=== PATIENT | female | born 1940 | race Caucasian/White ===

== ENCOUNTER 2020-08-19 11:33 | Observation (INO) | payer MEDICARE, SELFPAY ==
[2020-08-19] VITALS (15 sets, daily range): BP systolic 75–197; BP diastolic 55–145; PULSE 65–100; RESP 12–28; TEMP 36.4–36.7; O2SAT 76–100; BMI 37.3
--- NOTE | ~2020-08-19 | XR_ITS ---
EXAMINATION: XR chest 1V portable INDICATION: Chest congestion, shortness of breath TECHNIQUE: Portable AP chest at 1233 hours COMPARISON: 02/05/2016 FINDINGS: There is stable cardiomegaly. A mild diffuse interstitial pattern is present. There is no p leural effusion or pneumothorax. S-shaped thoracic curvature is noted. Calcified pulmonary nodules an d calcified mediastinal and bilateral hilar lymph nodes are consistent with old granulomatous disease . IMPRESSION: 1. Cardiomegaly with possible mild pulmonary edema. Reviewed, dictated and finalized at location A. UCTION PATTERN MAKER
--- NOTE | 2020-08-19 11:40 | ECG_ITS ---
Measurements Intervals [place] Rate: 97 P: 57 ND: 163 QRS: -8 QRSD: 87 T: 15 QT: 385 QTc: 491 Interpretive Statements SINUS RHYTHM FREQUENT VENTRICULAR PREMATURE COMPLEXES DELAYED PRECORDIAL R/S TRANSITION VOLTAGE CRITERIA FOR LVH BASELINE WANDER- V1-V6 ABNORMAL ECG Electronically Signed On 08-19-2020 17:53:18 HAIRSPRING CUTTER by Stan Castro D.O.
[2020-08-19 12:00] LABS: Basophils Absolute Auto 0.1 K/mm3 (0.0-0.1); Basophils Percent Auto 0.3 % (0.2-1.2); Eosinophils Absolute Auto 0.2 K/mm3 (0-0.3); Eosinophils Percent Auto 1.1 % (0-4.4); Hematocrit 32.8 % (37.0-47.0); Hemoglobin 10.2 g/dL (12.0-15.0); Immature Granulocyte Absolute 0.08 K/mm3 (0.00-0.031); Immature Granulocyte Percent A 0.5 % (0-0.5); Lymphocytes Absolute Auto 1.39 K/mm3 (0.9-3.2); Lymphocytes Percent Auto 9.5 % (18.3-44.2); Mean Corpuscular HGB Conc 31.1 g/dl (32-36); Mean Corpuscular Hemoglobin 23.4 pg (26-34); Mean Corpuscular Volume 75.4 fl (80-100); Mean Platelet Volume 10.5 fl (7.4-10.4); Monocytes Absolute Auto 0.8 K/mm3 (0.1-0.6); Monocytes Percent Auto 5.4 % (2.6-8.5); Neutrophils Absolute Auto 12.2 K/mm3 (1.3-6.7); Neutrophils Percent Auto 83.2 % (45.5-73.1); Platelet Count Result 319 k/mm3 (150-375); Red Blood Count 4.35 M/mm3 (4.2-5.4); White Blood Count 14.7 K/mm3 (4.5-10.0)
[2020-08-19 12:07] LABS: Prothrombin Time 14.2 Seconds (11.1-14.7)
[2020-08-19 12:08] LABS: Partial Thromboplastin Time 31.9 SECONDS (22.3-36.8)
[2020-08-19 12:11] LABS: Anion Gap 11 mmol/L (8-16); Blood Urea Nitrogen 24 mg/dL (7-17); Calcium 9.7 mg/dL (8.4-10.2); Carbon Dioxide 28 mmol/L (22-30); Chloride 98 mmol/L (98-107); Estimated CRCL calculation 33 ml/min; Estimated Glomerular Filt Rate 39; Glucose 197 mg/dL (65-105); Potassium 3.4 mmol/L (3.4-5.0); Sodium 137 mmol/L (137-145)
[2020-08-19 12:24] LABS: NT Pro B Type Natriuretic Pept 1190 PG/ML (5-100); Troponin I < 0.012 ng/mL (0.000-0.034)
--- NOTE | 2020-08-19 12:32 | ED.SOB ---
HPI - SOB/Dyspnea General Chief Complaint: Shortness of Breath/Dyspnea Stated Complaint: SOB Time Seen by Provider: 08/19/20 12:19 History of Present Illness HPI Narrative: 79 yo female w/ h/o CHF, DM, HTN c/o SOB. She reports that she has chronic SOB for quite some time. This has been worse over the past few weeks. It is present constantly, worse with exertion. She was just admitted to [facility] for newly diagnosed CHF. She was discharged from the hospital about 10 days ago with new prescriptions for lasix and albuterol. She was initially feeling better, but her symptoms have since returned. No CP, fever, chills, nausea, numbness. Related Data Home Medications Medication Instructions Recorded Confirmed Lantus Solostar U-100 Insulin 15 unit SUBCUT DAILY 08/19/20 08/19/20 Tradjenta 5 mg PO DAILY 08/19/20 08/19/20 albuterol sulfate 90 mcg INHALATION Q6H PRN 08/19/20 08/19/20 aspirin 81 mg PO DAILY 08/19/20 08/19/20 indapamide 2.5 mg PO DAILY 08/19/20 08/19/20 metoprolol tartrate 50 mg PO BID 08/19/20 08/19/20 valsartan 320 mg PO DAILY 08/19/20 08/19/20 Allergies Allergy/AdvReac Type Severity Reaction Status Date / Time adhesive tape Allergy Mild RASH Verified 08/19/20 12:23 benzocaine Allergy Unknown RASH Verified 08/19/20 12:23 LOCALANESTHETIC Allergy Unknown RASH Uncoded 08/19/20 12:23 Review of Systems Review of Systems: All systems reviewed & are unremarkable except as noted in HPI and below Constitutional: Constitutional: Denies chills and Denies fever(s) Cardiovascular: Cardiovascular: Denies chest pain Respiratory: Respiratory: Denies cough, Reports dyspnea and Denies wheezing Gastrointestinal: Gastrointestinal: Denies abdominal pain, Denies nausea and Denies vomiting Neurologic: Denies confusion, Denies dizziness and Reports weakness PMFSH Past Medical History Medical History (Updated 09/05/20 @ 17:[address] MD) Diastolic congestive heart failure Hypertension Insulin dependent diabetes mellitus Surgical History Surgical History (Updated 08/19/20 @ 22:14 by Natalie G. Gerling, PA-C) History of hammertoe correction History of laparoscopic cholecystectomy History of tubal ligation Family History Family History (Updated 08/19/20 @ 22:37 by Manolo Sabillon RN) Mother Diabetes mellitus Acute myocardial infarction Hypertension Sibling Heart disease Sibling Alzheimer's dementia Social History Social History (Updated 08/19/20 @ 22:15 by Natalie Shea PA-C) Social History: The patient lives in her own home in [place]. She has a small dog at home with her. 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 She is a lifelong nonsmoker and denies alcohol and illicit substance abuse. She designates her daughter Hien Aldana as her surrogate decision maker and she wishes to be a full code. Smoking status: Never smoker Substance use: never Gender identity (if verbalized by the patient): Female Sexual Orientation (if Verbalized by the Patient): Straight or Heterosexual Spiritual care concerns: No Exam Const: General: healthy appearing, no acute distress and alert Orientation/consciousness: patient oriented x3 HENMT: Head: normal to inspection Neck: Neck: normal visual inspection Chest: Chest palpation & inspection: normal inspection of the chest Resp: Effort & Inspection: normal respiratory effort Auscultation: clear to auscultation bilaterally, no rales, no rhonchi and no wheezes Cardio: Jugular venous distension: no JVD Rate: regular rate Rhythm: regular rhythm Heart sounds: no murmurs GI: Inspection: non-distended GI Palp: Yes Soft to palpation and No Tenderness to palpation present (GI) Skin: General skin exam: normal color Neuro: General: patient oriented x3, moves all extremities and no focal motor deficits Speech: normal speech Extrem: General: normal to inspection and no edema Psych: Appearance: well kina
[2020-08-19] MEDS: LABETALOL HCL INJ 100 MG/20 ML VIAL 20 MG IV PUSH (13:35)
[2020-08-19 18:04] LABS: Troponin I 0.014 ng/mL (0.000-0.034)
--- NOTE | 2020-08-19 19:09 | PC.NURSE ---
Pt arrived from ED at 18:58. Patient A&O X 4. On room air. No distress noted.
--- NOTE | 2020-08-19 20:30 | PM.IMHP ---
H&P: HPI History of Present Illness Date/Time: 08/19/20 20:30 Chief complaint: Chest heaviness and shortness of breath. Narrative: Lorraine Davis is a pleasant 79-year-old female with insulin-dependent diabetes, hypertension, and recent diagnosis of diastolic congestive heart failure who presented to the emergency department earlier this afternoon with complaints of chest heaviness and shortness of breath. For the last 3 weeks or so she reports the development of dyspnea on exertion and occasional wheezing. In fact she was admitted to [facility] on 08/01/2020 after developing acute/worsening shortness of breath and it was at that time she was diagnosed with diastolic congestive heart failure. In addition to diuresis she was treated with antibiotics for possible pneumonia and is nearly finished that prescription. She felt pretty good on discharge but unfortunately this morning, not long after waking at around 07:00, she developed a sudden heaviness sensation in the midsternal chest region associated with shortness of breath. She used her inhaler and that may have helped somewhat but her symptoms have persisted intermittently since that time and thus she came in for evaluation. On arrival to the emergency department her blood pressure was as high as 197/129 and she tells me it is not unusual for her to have high readings on her home blood pressure machine, but she always thought that they were erroneous. She received labetalol 20 mg IV push x1 which dropped her pressures significantly, down into the 70s systolic, and she reports feeling bad for short period of time but is feeling much better now that her blood pressures have rebounded. Since receiving the labetalol she has not experienced any further chest heaviness or shortness of breath. She chose to come to [facility] as she is establishing care with Dr. Lai. She does not have a maintenance job titles and has no known history of coronary disease. No lower extremity edema, calf pain, or tenderness. She has occasional chills but has not had fever or sweats. No significant cough, sinus congestion, rhinorrhea, otalgia, or odynophagia. She denies nausea and vomiting. No sick contacts or exposure to those positive for COVID-19. She has no history of asthma or COPD. Review of Systems Review of Systems: Narrative: Twelve systems were reviewed with pertinent positives and negatives as per HPI. No headache. She denies vertigo. No diarrhea or constipation. No dysuria. She believes her diabetes is well controlled but does not recall her last hemoglobin A1c. She only checks her glucose about twice a week and reports random readings usually around 120 or below. No blurry vision, polydipsia, or polyuria. Except as documented, all other systems were reviewed and are negative. [facility] Past Medical History Medical History (Updated 08/19/20 @ 22:17 by Natalie Shea PA-C) Diastolic congestive heart failure Hypertension Insulin dependent diabetes mellitus Surgical History Surgical History (Updated 08/19/20 @ 22:14 by Natalie Shea PA-C) History of hammertoe correction History of laparoscopic cholecystectomy History of tubal ligation Family History Family History (Updated 08/19/20 @ 22:14 by Natalie Shea PA-C) Mother Acute myocardial infarction Diabetes mellitus Sibling Heart disease Sibling Alzheimer's dementia Other Hypertension Social History Social History (Updated 08/19/20 @ 22:15 by Natalie Shea PA-C) Social History: The patient lives in her own home in [place]. She has a small dog at home with her. 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 She is a lifelong nonsmoker and denies alcohol and illicit substance abuse. She designates her daughter Hien Aldana as her surrogate decision maker and she wishes to be a full code. Smoking status: Never smoker Substance use: never Gender identity (if
[2020-08-19 20:58] LABS: Troponin I 0.015 ng/mL (0.000-0.034)
[2020-08-20] VITALS (8 sets, daily range): BP systolic 152–180; BP diastolic 58–91; PULSE 57–80; RESP 20–22; TEMP 36.6–37.2; O2SAT 98–99
[2020-08-20 00:30] LABS: Folic Acid 9.6 ng/mL (2.76->20); Vitamin B12 > 1000.0 pg/mL (239-931)
[2020-08-20 02:32] LABS: Iron 27 ug/dL (37-170)
[2020-08-20 02:42] LABS: Percent Iron Saturation 6 % (20-50)
[2020-08-20] MEDS: ASPIRIN 81 MG ENTERIC TABLET PO (09:10)
[2020-08-20] MEDS: VALSARTAN 160 MG TABLET 320 MG PO (09:10)
[2020-08-20] MEDS: METOPROLOL TARTRATE 50 MG TAB PO (09:10)
[2020-08-20] MEDS: INSULIN GLARGINE (*BKC) 100 UNITS/ML 15 UNITS SUB-Q (09:10)
[2020-08-20] MEDS: FUROSEMIDE INJ 40 MG/4 ML VIAL IV PUSH (09:10)
[2020-08-20] MEDS: INDAPAMIDE 2.5 MG TABLET PO (09:10)
[2020-08-20 09:39] LABS: Glucose Point of Care 125 (65-105)
[2020-08-20 12:40] LABS: Glucose Point of Care 163 (65-105)
--- NOTE | 2020-08-20 13:14 | PM.CNCAR ---
Assessment and Plan Additional Plan 79-year-old lady with a history of diastolic noncompliance and hypertension. She presents to the hospital with some SCOTT and is being seen in consultation. It is certainly possible that these are symptoms of an ischemic equivalent. She is not specifically reporting chest pain however. Given her age and risk factors ischemia workup is appropriate. Spoke to the patient about stress testing and angiography. At this point I would not subject her to an angiogram. I would recommend nuclear stress testing. We discussed at quite some length a Lexiscan nuclear stress test which the patient is not happy to have done that she had this done in the past a number of years ago and had a syncopal episode after receiving Lexiscan. She had a discussion with Dr. Mathews in our office back in March of 2016 and at that point she did not wish to have a noninvasive study or an angiogram. After a long discussion she became agreeable to stress testing. I was then reminded that both supervisor nuclear medicine at this hospital are out on illness and stress testing is therefore not available at [facility] at this time. Since there is no evidence of an acute coronary syndrome I will arrange for exercise nuclear stress testing to occur in the office and a short interval following discharge. After that I will arrange follow-up in the office with Dr. Mathews to discuss the findings. Thom Rubin MD [facility] History of Present Illness History of Present Illness Consult date/time: 08/20/20 13:14 Consult reason: shortness of breath Reason For Visit: Chest heaviness and shortness of breath. Narrative: This is a very pleasant 79-year-old lady am seeing this afternoon at the request of the hospitalist because of symptoms of dyspnea and mild chest discomfort with activities and was admitted from the emergency room last evening for further evaluation of this. She is a lady who is not known specifically to have coronary artery disease. She does have a history of left ventricular diastolic noncompliance that has been noted on echocardiograms for a while. She was seen by my partner, Dr. alvarez a number of years ago for this type of al evaluation. Workup for ischemic heart disease was recommended at that time but refused by the patient. She apparently had a syncopal episode in the past when she had a Lexiscan nuclear stress test done and was not desirous of having a coronary angiogram either. Follow-up in the office was recommended but not performed by the patient. At that time she was seeing a physician here locally she then transition her primary care to [facility]. She was recently hospitalized at [facility] for some dyspnea was told that she had diastolic noncompliance a yet again. An ischemic workup was not performed at that time in the way of any kind of stress testing that the patient can recall. She was admitted here to the hospital at [place] with the symptoms within a short period of her recent admission. She not reporting any orthopnea PND or accumulating lower extremity edema. Review of Systems Constitutional: Constitutional: Reports no additional constitutional complaints ENT: Reports system reviewed and no additional complaints, except as documented Cardiovascular: Cardiovascular: Reports no additional cardiovascular complaints Respiratory: Respiratory: Reports no additional respiratory complaints Gastrointestinal: Gastrointestinal: Reports no additional gastrointestinal complaints Musculoskeletal: Musculoskeletal: Reports arthralgias Neurologic: Reports system reviewed and no additional complaints, except as documented Endocrine: Endocrine: Reports no additional endocrine complaints Hematologic/Lymphatic: Hematologic/Lymphatic: Reports no additional hematologic/lymphatic complaints Allergic/Immunologic: Allergic/Immunologic: Reports no additional allergic/immunologic complaints PMFSH Past Medical Histo
--- NOTE | 2020-08-20 13:31 | PM.DS ---
DS: Admitting Diagnosis Admitting Diagnosis Admitting Diagnosis: Chest heaviness and shortness of breath. DS: Discharge Diagnosis Discharge Diagnosis (1) Chest heaviness: Code(s): R07.89 - Other chest pain Status: Acute (2) Diastolic congestive heart failure: Code(s): I50.30 - Unspecified diastolic (congestive) heart failure Status: Acute (3) Hypertension: Code(s): I10 - Essential (primary) hypertension Status: Acute (4) Insulin dependent diabetes mellitus: Status: Acute DS: Summary Hospital Course Reason for hospitalization: 79yo female with DM and dCHF here for SOB and CP. Please see H&P for details. Hospital Course: Patient presented the emergency room with complaints of chest shortness of blood pressure. On presentation her blood pressure was 148/112. She received labetalol 20 mg IV but blood pressure dropped to 75/62. Chest x-ray was read as cardiomegaly with possible mild pulmonary edema. Her white count was elevated 14,700. She had a microcytic anemia with hemoglobin 10.2. BUN 24 and Cr 1.3. She may be mildly dehydrated vs CKD. She is on indapamide and lasix at home. Lasix IV x 1 given here. Plan however is to stop Lasix and just keep her on the indapamide. Iron studies consistent with iron deficiency anemia. Never had colonoscopy. She was unaware of the iron deficiency. Iron supplements added at discharge. BP improved and able to resume her home meds. BP still mildly elevated so low dose Norvasc added at discharge. She was instructed to bring her BP cuff in to her PCP so the readings can be compared. Glucose was well controlled during her hospital course. She was seen by Cardiology. She remained chest pain free. Stress test recommended and harmann chose to have a treadmill nuc med stress. The nuc med department is not available to perform this test so plan is for patient to be discharged and have the stress test as outpatient. Patient is agreeable for discharge. Status at Discharge Cognitive/behavioral status at discharge: PATIENT IS STABLE FOR DISCHARGE Time Spent with Patient Time attestation: Total time spent providing and/or coordinating discharge services:38 minutes Time spent: Greater than 30 minutes Exam Narrative: Exam Narrative: AF 98.9 152/68 74 20 99% RA Gen - NARD sitting up at side of bed eating lunch Chest - CTA bilaterally, nml RR CV - RRR S1/S2; Tele showing NSR with PVCs Abd - Soft, NT/ND, Positive BS Ext - No pedal edema Neuro - Alert and oriented. Nonfocal exam. Psych - Nml mood and affect Skin - Warm and dry DS: Data Data Completed and Pending Labs on day of discharge: Labs from last 24 hours 08/20/20 08/20/20 08/19/20 12:05 09:07 22:52 POC Capillary Glucose 163 H 125 H Iron TIBC % Saturation Ferritin Troponin I Vitamin B12 > 1000.0 H Folate 9.6 TSH (Reflex) 08/19/20 08/19/20 08/19/20 22:52 20:29 17:28 POC Capillary Glucose Iron 27 L TIBC 437 % Saturation 6 L Ferritin 11.60 Troponin I 0.015 0.014 Vitamin B12 Folate TSH (Reflex) 1.550 Discharge Plan Discharge Attending physician on discharge: Danie Parikh Consulting providers: Thom Rubin Discharging Clinician: Danie Parikh Anticipated Discharge Date/Time: 08/20/20 13:55 Patient Disposition: Home, Self-Care Activity: as tolerated Diet: heart healthy Discharge Instructions: Please avoid large gathering, wear face coverings in public and practice social distance. Please check glucose before meals and before bed. Record and bring into your doctor for review. Check blood pressure 1 to 2 times a day. Record and bring into your doctor for review. Call your doctor if your blood pressure is greater than 180/100 as we discussed. Take precautions to avoid falls. Rise slowly from a lying or sitting position. Pause before standing or walking. Contact your d
== END 2020-08-20 15:13 | disposition home or self-care (01) ==
LOC: ANHED 13:24 → ANHIMU 17:48
PROVIDERS: Emergency Medicine; Physician Assistant; Admitting Provider Student in an Organized Health Care Education/Training Program; Emergency Provider Emergency Medicine; PCP Family Medicine; Visit Provider Internal Medicine
DX: R06.02 Shortness of breath (principal); I11.0 Hypertensive heart disease with heart failure; I50.30 Unspecified diastolic (congestive) heart failure; E11.9 Type 2 diabetes mellitus without complications; Z79.82 Long term (current) use of aspirin; Z79.4 Long term (current) use of insulin
CPT/HCPCS: 36415; 71045; 80048; 82607; 82728; 82746; 83540; 83550; 83880; 84443; 84484; 85025; 85610; 85730; 93005; 96374; 96375; 99285; A9270; G0378; J1815; J1940

== ENCOUNTER 2020-10-15 14:05 | Outpatient (CLI) | payer MEDICARE, SELFPAY ==
--- NOTE | ~2020-10-15 | XR_ITS ---
EXAMINATION: XR foot RT 2V DATE: 10/15/2020 14:34 INDICATION: Right foot pain. Gout. TECHNIQUE: Dorsoplantar and lateral views of the right foot were obtained. COMPARISON: None. FINDINGS: Widening of the second and third proximal interphalangeal joint spaces with osteotomies at the heads of the second and third proximal phalanges likely for prior hammertoe correction. Alignment is otherw ise normal. No fracture. Polyarticular osteoarthritis, mild to moderate at the tarsal metatarsal join ts and mild at multiple additional joints in the forefoot and hindfoot. There are several lucencies a long the distal articular surface of the navicula, proximal and distal articular surface of the mid c uneiform as well as along the proximal articular surface of the cuboid which could represent degenera tive subchondral cysts or erosions related to reported history of gout. Scattered small enthesophytes and enthesopathic ossification most prominent at the calcaneal insertion of the Achilles tendon and plantar aponeurosis. IMPRESSION: 1. Mild to moderate polyarticular osteoarthritis most prominent in the midfoot with air multiple smal l lucencies with thin sclerotic margins which could represent either degenerative subchondral cysts o r chronic erosions consistent with gout. Reviewed, dictated and finalized at location A. R DESIGNER IMPRESSION: 1. Mild to moderate polyarticular osteoarthritis most prominent in the midfoot with air multiple small lucencies with thin sclerotic margins which could repre sent either degenerative subchondral cysts or chronic erosions consistent with gout.
[2020-10-15 15:31] LABS: Uric Acid 8.7 mg/dL (2.5-7.5)
== END 2020-10-15 14:06 | disposition home or self-care (01) ==
PROVIDERS: PCP Family Medicine; Visit Provider Physician Assistant Medical
DX: M79.671 Pain in right foot (principal); Z87.39 Personal history of other diseases of the musculoskeletal system and connective tissue; M19.071 Primary osteoarthritis, right ankle and foot
CPT/HCPCS: 36415; 73620; 84550

== ENCOUNTER 2020-10-19 14:51 | Outpatient (CLI) | payer MEDICARE, SELFPAY ==
[2020-10-19 17:22] LABS: Anion Gap 8 mmol/L (8-16); Blood Urea Nitrogen 29 mg/dL (7-17); Calcium 9.3 mg/dL (8.4-10.2); Carbon Dioxide 26 mmol/L (22-30); Chloride 103 mmol/L (98-107); Estimated Glomerular Filt Rate 43; Glucose 225 mg/dL (65-105); Potassium 3.9 mmol/L (3.4-5.0); Sodium 137 mmol/L (137-145)
== END 2020-10-19 14:52 | disposition home or self-care (01) ==
PROVIDERS: PCP Family Medicine; Visit Provider Internal Medicine Cardiovascular Disease
DX: I10 Essential (primary) hypertension (principal)
CPT/HCPCS: 36415; 80048

== ENCOUNTER 2020-12-10 15:06 | Outpatient (CLI) | payer MEDICARE, SELFPAY ==
[2020-12-10 16:08] LABS: Hematocrit 41.9 % (37.0-47.0); Hemoglobin 14.1 g/dL (12.0-15.0); Mean Corpuscular HGB Conc 33.7 g/dl (32-36); Mean Corpuscular Hemoglobin 30.1 pg (26-34); Mean Corpuscular Volume 89.5 fl (80-100); Mean Platelet Volume 10.3 fl (7.4-10.4); Platelet Count Result 206 k/mm3 (150-375); Red Blood Count 4.68 M/mm3 (4.2-5.4); Red Cell Distribution Width 14.5 % (11.5-14.5); White Blood Count 13.4 K/mm3 (4.5-10.0)
[2020-12-10 16:25] LABS: Anion Gap 5 mmol/L (8-16); Blood Urea Nitrogen 23 mg/dL (7-17); Calcium 9.2 mg/dL (8.4-10.2); Carbon Dioxide 30 mmol/L (22-30); Chloride 101 mmol/L (98-107); Cholesterol 164 mg/dL (0-200); Estimated Glomerular Filt Rate 43; Glucose 163 mg/dL (65-105); HDL Direct 52 mg/dL; Potassium 3.7 mmol/L (3.4-5.0); Sodium 136 mmol/L (137-145); Triglycerides 170 mg/dL (<150); Uric Acid 7.2 mg/dL (2.5-7.5)
[2020-12-10 16:35] LABS: LDL Cholesterol Direct 69 mg/dL
[2020-12-10 16:55] LABS: Thyroid Stimulating Hormone 0.876 uIU/mL (0.465-4.680)
[2020-12-10 19:24] LABS: Iron 103 ug/dL (37-170); Percent Iron Saturation 33 % (20-50); Vitamin D 25 Hydroxy 26.9 ng/mL
== END 2020-12-10 15:07 | disposition home or self-care (01) ==
LOC: ANHLAB 15:07
PROVIDERS: PCP Family Medicine; Visit Provider Nurse Practitioner Family
DX: E78.2 Mixed hyperlipidemia (principal); N18.30 Chronic kidney disease, stage 3 unspecified; I10 Essential (primary) hypertension; E55.9 Vitamin D deficiency, unspecified; M10.9 Gout, unspecified; E61.1 Iron deficiency; D64.9 Anemia, unspecified; Z13.29 Encounter for screening for other suspected endocrine disorder; R74.8 Abnormal levels of other serum enzymes
CPT/HCPCS: 36415; 80048; 80061; 82306; 82607; 83540; 83550; 84443; 84550; 85027

== ENCOUNTER 2021-02-15 12:48 | Outpatient (CLI) | payer MEDICARE, SELFPAY ==
[2021-02-15 13:30] LABS: Hematocrit 40.8 % (37.0-47.0); Hemoglobin 13.8 g/dL (12.0-15.0); Mean Corpuscular HGB Conc 33.8 g/dl (32-36); Mean Corpuscular Hemoglobin 30.7 pg (26-34); Mean Corpuscular Volume 90.7 fl (80-100); Mean Platelet Volume 10.3 fl (7.4-10.4); Platelet Count Result 206 k/mm3 (150-375); Red Cell Distribution Width 13.9 % (11.5-14.5); White Blood Count 14.6 K/mm3 (4.5-10.0)
[2021-02-15 13:46] LABS: Potassium 3.7 mmol/L (3.4-5.0)
[2021-02-15 13:52] LABS: Anion Gap 5 mmol/L (8-16); Blood Urea Nitrogen 24 mg/dL (7-17); Calcium 9.9 mg/dL (8.4-10.2); Carbon Dioxide 29 mmol/L (22-30); Chloride 102 mmol/L (98-107); Estimated Glomerular Filt Rate 43; Glucose 124 mg/dL (65-105); Sodium 136 mmol/L (137-145)
[2021-02-15 14:21] LABS: Vitamin D 25 Hydroxy 39.8 ng/mL
== END 2021-02-15 12:49 | disposition home or self-care (01) ==
LOC: ANHLAB 12:50
PROVIDERS: PCP Family Medicine; Visit Provider Nurse Practitioner Family
DX: E55.9 Vitamin D deficiency, unspecified (principal); N18.30 Chronic kidney disease, stage 3 unspecified; D72.829 Elevated white blood cell count, unspecified
CPT/HCPCS: 36415; 80048; 82306; 85027

== ENCOUNTER 2021-04-03 09:33 | Outpatient (CLI) | payer MEDICARE, SELFPAY ==
--- NOTE | 2021-04-23 16:01 | WPDHOMESLEEP ---
Sleep Study - Home Unattended Date of Study: 04/03/21 Ordering Provider: Aminta Mathews MD Interpreting Provider: Trudy Marr MD Home Sleep Study Type: Apnea Link Air Height: 1.6 m Weight: 93.44 kg Body Mass Index: 36.5 Neck Circumference (inches): 13.25 [place]: 8 Reason for Sleep Study Hypersomnolence, fatigue, chronic diastolic congestive heart failure, Sleep History Lorraine Davis is an 80 year old female with chronic diastolic congestive heart failure, hypertension and excessive daytime sleepiness.m she has a difficult time falling asleep, she wakes up during during the night. She does not awaken from sleep feeling short of breath and she does not awaken with heartburn, belching or coughing. She does not mention whether or not she snores. She rarely has trouble sleeping with a cold. She does not wake up gasping for breath at night, does not have breathing problems at night observed by others and does not sweat excessively at night. She rarely falls asleep during the day, does not fall asleep while driving. She does not fall asleep while exerting physical effort. She does not have loss of muscle tone with strong emotion. She does not have daytime difficulties due to excessive sleepiness. There is no paralysis on waking or falling asleep. There are no vivid dreamlike scenes upon awakening or falling asleep. She is not great to go to sleep. She does not have nightmares and she does not remember her dreams. She rarely feels sad depressed or anxious. She does not have muscular tension. She does not notice parts of her body jerking. She does not kick at night. She rarely has crawling and aching feelings in her legs. She rarely has any kind of leg pain at night. She rarely has morning jaw pain. She does not grind her teeth during sleep. She rarely is bothered by pain during the day. She rarely is awakened by pain at night. She rarely wakes up feeling stiff in the morning with sore achy muscles or pain in the neck and spine. She has fatigue and depression. Normal bedtime is 10:30 p.m. and she wakes at 6:00 a.m.. She wakes 2-3 times at night to urinate. On the weekends she goes to bed at 11:00 p.m. and wakes at 8:00 a.m.. She does not generally take naps. A short nap may be refreshing. Most of the time she feels adequate on waking. She feels better in the afternoon compared to the morning. Habits: Never smoked tobacco. Caffeine: 4 cups daily. No alcohol or recreational drugs. [facility] Past Medical History Medical History BMI 37.0-37.9, adult Diastolic congestive heart failure Establishing care with new doctor, encounter for Gall stone Hypertension Insulin dependent diabetes mellitus Surgical History Surgical History History of hammertoe correction History of laparoscopic cholecystectomy History of tubal ligation Family History Family History Mother Diabetes mellitus Acute myocardial infarction Hypertension Heart disease Cholecystolithiasis Sibling Heart disease Alzheimer's dementia Sibling Alzheimer's dementia Father Heart disease Daughter No problems noted. Son Diabetes mellitus Morbid obesity Social History Social History Social History: The patient lives in her own home in [place]. She has a small dog at home with her. 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 She is a lifelong nonsmoker and denies alcohol and illicit substance abuse. She designates her daughter Hien Aldana as her surrogate decision maker and she wishes to be a full code. Smoking status: Never smoker Second hand tobacco smoke exposure: Yes Alcohol intake: never Substance use: never Substa
[2021-04-23 16:29] VITALS: BMI 36.5
== END 2021-04-05 10:09 | disposition home or self-care (01) ==
LOC: ANHCSM 09:42
PROVIDERS: PCP Family Medicine; Visit Provider Internal Medicine Cardiovascular Disease
DX: G47.9 Sleep disorder, unspecified (principal); G47.14 Hypersomnia due to medical condition; Z68.36 Body mass index [BMI] 36.0-36.9, adult
CPT/HCPCS: 95806

== ENCOUNTER → 2021-05-06 00:48 | Outpatient (CLI) | payer MEDICARE, SELFPAY ==
[2021-05-06 17:06] LABS: SARS-CoV-2 RNA PCR Negative
== END ==
PROVIDERS: PCP Family Medicine; Visit Provider Internal Medicine Critical Care Medicine
DX: Z01.812 Encounter for preprocedural laboratory examination (principal); Z20.822 Contact with and (suspected) exposure to COVID-19
CPT/HCPCS: C9803; U0003; U0005

== ENCOUNTER 2021-05-09 08:57 | Outpatient (CLI) | payer MEDICARE, SELFPAY ==
--- NOTE | 2021-06-05 13:40 | WPDSLEEPSTUD ---
Sleep Study Date of Study: 05/09/21 Ordering Provider: Aminta Mathews MD Interpreting Physician: Trudy Marr MD Sleep Study Type: CPAP Titration Height: 1.57 m Weight: 94.801 kg Body Mass Index: 38.2 Neck Circumference (inches): 13.75 [place]: 2 Reason for Sleep Study * home sleep test April 03, 2021 shows moderate mixed sleep apnea with an AHI of 24 desaturation 85%. now presents for CPAP titration Sleep History Lorraine Davis is an 80 year old female with chronic diastolic congestive heart failure, hypertension and excessive daytime sleepiness.m she has a difficult time falling asleep, she wakes up during during the night. She does not awaken from sleep feeling short of breath and she does not awaken with heartburn, belching or coughing. She does not mention whether or not she snores. She rarely has trouble sleeping with a cold. She does not wake up gasping for breath at night, does not have breathing problems at night observed by others and does not sweat excessively at night. She rarely falls asleep during the day, does not fall asleep while driving. She does not fall asleep while exerting physical effort. She does not have loss of muscle tone with strong emotion. She does not have daytime difficulties due to excessive sleepiness. There is no paralysis on waking or falling asleep. There are no vivid dreamlike scenes upon awakening or falling asleep. She is not great to go to sleep. She does not have nightmares and she does not remember her dreams. She rarely feels sad depressed or anxious. She does not have muscular tension. She does not notice parts of her body jerking. She does not kick at night. She rarely has crawling and aching feelings in her legs. She rarely has any kind of leg pain at night. She rarely has morning jaw pain. She does not grind her teeth during sleep. She rarely is bothered by pain during the day. She rarely is awakened by pain at night. She rarely wakes up feeling stiff in the morning with sore achy muscles or pain in the neck and spine. She has fatigue and depression. Normal bedtime is 10:30 p.m. and she wakes at 6:00 a.m.. She wakes 2-3 times at night to urinate. On the weekends she goes to bed at 11:00 p.m. and wakes at 8:00 a.m.. She does not generally take naps. A short nap may be refreshing. Most of the time she feels adequate on waking. She feels better in the afternoon compared to the morning. Habits: Never smoked tobacco. Caffeine: 4 cups daily. No alcohol or recreational drugs. [facility] Past Medical History Medical History BMI 37.0-37.9, adult Diastolic congestive heart failure Establishing care with new doctor, encounter for Gall stone Hypertension Insulin dependent diabetes mellitus Surgical History Surgical History History of hammertoe correction History of laparoscopic cholecystectomy History of tubal ligation Family History Family History Mother Diabetes mellitus Acute myocardial infarction Hypertension Heart disease Cholecystolithiasis Sibling Heart disease Alzheimer's dementia Sibling Alzheimer's dementia Father Heart disease Daughter No problems noted. Son Diabetes mellitus Morbid obesity Social History Social History Social History: The patient lives in her own home in [place]. She has a small dog at home with her. 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 She is a lifelong nonsmoker and denies alcohol and illicit substance abuse. She designates her daughter Hien Aldana as her surrogate decision maker and she wishes to be a full code. Smoking status: Never smoker Second hand tobacco smoke exposure: Yes Alcohol int
[2021-06-05 13:43] VITALS: BMI 38.2
== END 2021-05-10 06:42 | disposition home or self-care (01) ==
LOC: ANHCSM 08:59
PROVIDERS: PCP Family Medicine; Visit Provider Internal Medicine Cardiovascular Disease
DX: G47.39 Other sleep apnea (principal); Z68.38 Body mass index [BMI] 38.0-38.9, adult
CPT/HCPCS: 95811

== ENCOUNTER 2021-11-08 22:08 | Inpatient (IN) | payer MEDICARE, SELFPAY ==
--- NOTE | ~2021-11-08 | XR_ITS ---
EXAMINATION: XR chest 1V portable EXAM DATE: 11/08/2021 23:03 INDICATION: covid and SOB . TECHNIQUE: Portable AP frontal chest x-ray was obtained. Comparison is made to prior examination from . FINDINGS: Ill-defined bilateral airspace disease, mild edema or pneumonia. No pneumothorax or pleural effusion. Mild cardiomegaly. There are bony degenerative changes. Mild to moderate lower thoracic le voscoliosis. IMPRESSION: Mild bilateral pneumonia or edema. Reviewed, dictated and finalized at location [address] [facility]
--- NOTE | ~2021-11-08 | XR_ITS ---
XR chest 1V portable 11/10/2021 11:03 Indication: Shortness of breath and cough Procedure: AP portable chest Comparison: 11/08/2021 Findings: There is developing patchy bilateral airspace disease. Heart size mildly enlarged. No signi ficant effusion, edema or pneumothorax. Impression: 1: Developing patchy bilateral airspace disease, compatible with pneumonia. Reviewed, dictated and finalized at location A. PLE CUTTER Impression: 1: Developing patchy bilateral airspace disease, compatible with pneumonia.
--- NOTE | ~2021-11-08 | CT_ITS ---
EXAMINATION: CTA chest PE protocol DATE: 11/09/2021 08:29 LOOM OPERATOR APPRENTICE INDICATION: Covid Infection. Elevated d-dimer. Weakness. TECHNIQUE: Computed tomographic angiography (CTA) of the chest was performed with 100 mL Omnipaque-35 0 intravenous contrast. The dose-length product was 591.23 mGy-cm. Maximum intensity projection 3D-re constructions of the aorta and other arteries were constructed by the technologist on a separate work station. Automated exposure control and iterative reconstruction technique were employed. COMPARISON: None. FINDINGS: Study is technically adequate without evidence for pulmonary embolism. No significant thora cic lymphadenopathy. There is atherosclerosis of the aorta without evidence for aneurysm. Trace pleur al effusions. Small hiatal hernia. Patchy groundglass opacities bilaterally, consistent with pneumoni a. There is evidence for chronic granulomatous disease. IMPRESSION: 1. Patchy bilateral groundglass opacities, consistent with pneumonia. 2: No evidence for pulmonary embolism. 3: Small pleural effusions. Reviewed, dictated and finalized at location A. OPERATOR APPRENTICE
[2021-11-08 22:14] VITALS: BP 148/88; PULSE 81; RESP 14; TEMP 36.8; O2SAT 96
--- NOTE | 2021-11-08 22:32 | ECG_ITS ---
Measurements Intervals [place] Rate: 125 P: NV: 0 QRS: -13 QRSD: 86 T: 15 QT: 341 QTc: 493 Interpretive Statements ATRIAL FIBRILLATION WITH RAPID VENTRICULAR RESPONSE VENTRICULAR PREMATURE COMPLEXES DELAYED PRECORDIAL R/S TRANSITION LEFT VENTRICULAR HYPERTROPHY WITH ST-T CHANGE INFERIOR INFARCT, AGE INDETERMINATE BASELINE ARTIFACT- V6 ABNORMAL ECG Electronically Signed On 11-09-2021 8:40:00 SHOE TRIMMER by Stan Castro D.O.
--- NOTE | 2021-11-08 22:37 | ED.GENADULT ---
HPI - General Adult General Chief complaint: Weakness Stated complaint: shortness of breath, covid + Time Seen by Provider: 11/08/21 22:25 Source: patient and RN notes reviewed Limitations: no limitations History of Present Illness HPI narrative: 80-year-old female with history of congestive heart failure and chronic kidney disease presents to the emergency department with 1 week of fatigue and decreased p.o. intake. Patient did test positive for Covid today. Patient states over the last week she has had decreased p.o. intake. Patient does report some associated shortness of breath. Patient denies any chest pain. Patient denies any actual vomiting or abdominal pain. Patient denies any constipation or diarrhea. Patient arrived and A. fib with RVR. Patient denies any prior history of atrial fibrillation with rapid ventricular response. Patient does report history of congestive heart failure Patient is not vaccinated. Related Data Home Medications Medication Instructions Recorded Confirmed aspirin 81 mg tablet 81 mg PO DAILY 09/06/20 07/31/21 Allergies Allergy/AdvReac Type Severity Reaction Status Date / Time adhesive tape Allergy Mild RASH Verified 07/30/21 15:05 benzocaine Allergy Unknown RASH Verified 07/30/21 15:05 LOCALANESTHETIC Allergy Unknown RASH Uncoded 07/30/21 15:05 Review of Systems Review of Systems: CONSTITUTIONAL: Subjective fevers chills EYES: Denies visual changes, redness, or discharge. ENT: Denies rhinorrhea, congestion, sore throat, or otalgia. CARDIOVASCULAR: Denies chest pain, palpitations, or edema. RESPIRATORY: Does report some shortness of breath GASTROINTESTINAL: Denies abdominal pain, nausea, vomiting, or diarrhea. GENITOURINARY: Denies dysuria or hematuria. SKIN: Denies rash or itching. MUSCULOSKELETAL: Denies back pain, joint pain, or myalgia. NEUROLOGIC: Denies headache, numbness, or weakness. [facility] Past Medical History Medical History BMI 37.0-37.9, adult BMI 38.0-38.9,adult Diastolic congestive heart failure Establishing care with new doctor, encounter for Gall stone Hypertension Insulin dependent diabetes mellitus Surgical History Surgical History History of hammertoe correction History of laparoscopic cholecystectomy History of tubal ligation Family History Family History Mother Diabetes mellitus Acute myocardial infarction Hypertension Heart disease Cholecystolithiasis Sibling Heart disease Alzheimer's dementia Sibling Alzheimer's dementia Father Heart disease Daughter No problems noted. Son Diabetes mellitus Morbid obesity Social History Social History Social History: The patient lives in her own home in [place]. She has a small dog at home with her. 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 She is a lifelong nonsmoker and denies alcohol and illicit substance abuse. She designates her daughter Hien Aldana as her surrogate decision maker and she wishes to be a full code. 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 HEAD: normocephalic, atraumatic. EYES: PERRLA/EOMI, conjunctivae clear. NOSE: Normal no drainage NECK: Supple. No adenopathy, no masses. RESPIRATORY: Airway patent, respirations nonlabored. Clear to auscul
[2021-11-08] MEDS: SODIUM CHLORIDE 0.9% IV 1,000 ML 250 ML IV CONT (23:24)
[2021-11-08 23:42] VITALS: PULSE 111
[2021-11-08] MEDS: METOPROLOL TARTRATE 50 MG TAB PO (23:42)
[2021-11-08 23:44] VITALS: BP 164/95; PULSE 120; RESP 26; O2SAT 97
[2021-11-08 23:46] LABS: Basophils Percent Auto 0.2 % (0.2-1.2); Hematocrit 42.2 % (37.0-47.0); Hemoglobin 14.4 g/dL (12.0-15.0); Immature Granulocyte Absolute 0.09 K/mm3 (0.00-0.031); Lymphocytes Absolute Auto 0.65 K/mm3 (0.9-3.2); Lymphocytes Percent Auto 7.5 % (18.3-44.2); Mean Corpuscular HGB Conc 34.1 g/dl (32-36); Mean Corpuscular Hemoglobin 30.1 pg (26-34); Mean Corpuscular Volume 88.3 fl (80-100); Mean Platelet Volume 10.5 fl (7.4-10.4); Monocytes Percent Auto 11.9 % (2.6-8.5); Neutrophils Absolute Auto 6.9 K/mm3 (1.3-6.7); Neutrophils Percent Auto 79.4 % (45.5-73.1); Platelet Count Result 169 k/mm3 (150-375); Red Blood Count 4.78 M/mm3 (4.2-5.4); Red Cell Distribution Width 13.3 % (11.5-14.5); White Blood Count 8.7 K/mm3 (4.5-10.0)
[2021-11-09] VITALS (24 sets, daily range): BP systolic 103–173; BP diastolic 56–112; PULSE 73–127; RESP 11–28; TEMP 36.3–37; O2SAT 95–99; BMI 35.7
[2021-11-09 00:03] LABS: D Dimer 1.59 ug/mL (<0.48)
[2021-11-09 00:04] LABS: Lactic Acid Reflex 1.2 mmol/L (0.7-2.1)
[2021-11-09] MEDS: dilTIAZem HCl INJ 25 MG/5 ML VIAL 10 MG IV PUSH (00:08)
[2021-11-09] MEDS: dilTIAZem 100 MG/100 ML 100 MG/100 ML BAG IV CONT ×2 (00:11→21:29)
[2021-11-09 00:37] LABS: Alanine Aminotransferase 20 U/L (4-35); Albumin Level 3.9 g/dL (3.5-5.1); Alkaline Phosphatase 77 U/L (38-126); Anion Gap 8 mmol/L (8-16); Aspartate Amino Transferase 36 U/L (14-36); Bilirubin,Total 1.4 mg/dL (0.2-1.3); Blood Urea Nitrogen 25 mg/dL (7-17); Calcium 8.7 mg/dL (8.4-10.2); Carbon Dioxide 28 mmol/L (22-30); Chloride 89 mmol/L (98-107); Estimated CRCL calculation 38 ml/min; Estimated Glomerular Filt Rate 48; Glucose 174 mg/dL (65-110); Lactate Dehydrogenase 509 U/L (313-618); Potassium 2.6 mmol/L (3.4-5.0); Sodium 125 mmol/L (137-145)
[2021-11-09] MEDS: POTASSIUM CHLORIDE 20 MEQ PACKET (FOR LIQUID) 40 MEQ PO (01:11)
[2021-11-09 01:33] LABS: Add Urine Microscopic? YES; Appearance Urine Clear (Clear); Bacteria Urine Trace /hpf; Bilirubin Urine Negative (Negative); Blood Urine 1+ (Negative); Color Urine Amber (Yellow); Glucose Urine UA Negative (Negative); Ketones Urine Negative (Negative); Leukocyte Esterase Ur 3+ LEU/UL (Negative); Mucus Urine Few /lpf; Nitrate Urine Negative (Negative); Protein Urine 3+ mg/dL (Negative); Squamous Epithelial Cell Urine Many /hpf (Few); WBC Urine 21-30 /hpf
[2021-11-09 01:57] LABS: Specific Grav Ur 1.045 (1.001-1.035)
[2021-11-09] MEDS: POTASSIUM CHLORIDE INJ 40 MEQ in SODIUM CHLORIDE 0.9% IV 500 ML 130 MEQ IVPB (03:36)
--- NOTE | 2021-11-09 06:17 | PC.NURSE ---
Pt ambulates with assistance of walker, RN provided hospital-owned walker to assist pt in to getting to bathroom, pt appears SOB and weak after short walks but states that she does well by herself at home; pt was re-dressed into gown, linens changed and warm blanket provided due to pt spilling water on self and stretcher. Pt continues on diltizem at original rate, hr has improved and there has been no need to increase dose. Pt has no complaints at this time.
--- NOTE | 2021-11-09 13:39 | PM.IMHP ---
H&P: HPI History of Present Illness Date/Time: 11/09/21 13:39 Chief Complaint: AFib with RVR Narrative: 80-year-old female with history of congestive heart failure and chronic kidney disease stage III presents to the emergency department with 1 week history of fatigue and decreased p.o. intake. She was also having some cough and hence went and did a home COVID test which came back positive on . She reports some associated shortness of breath. She denies any palpitations. Due to ongoing fatigue and tiredness she came to the ED for evaluation. She was noted to be in atrial fibrillation with rapid ventricular rate. She denies any prior history of atrial fibrillation. She denies any diarrhea or nausea vomiting or abdominal pain. She was given her metoprolol however the rate was not controlled and hence she was started on Cardizem drip in the ER. She currently is on Cardizem drip and remains in atrial fibrillation. She is admitted under observation status for further management. Patient is not vaccinated with COVID vaccine Review of Systems Review of Systems: CONSTITUTIONAL: Reports some Subjective fevers chills EYES: Denies visual changes, redness, or discharge. ENT: Denies rhinorrhea, congestion, sore throat, or otalgia. CARDIOVASCULAR: Denies chest pain, palpitations, or edema. RESPIRATORY: Does report some shortness of breath reports some dry cough GASTROINTESTINAL: Denies abdominal pain, nausea, vomiting, or diarrhea. GENITOURINARY: Denies dysuria or hematuria. SKIN: Denies rash or itching. MUSCULOSKELETAL: Denies back pain, joint pain, or myalgia. NEUROLOGIC: Denies headache, numbness, or weakness. [facility] Past Medical History Medical History BMI 37.0-37.9, adult BMI 38.0-38.9,adult Diastolic congestive heart failure Establishing care with new doctor, encounter for Gall stone Hypertension Insulin dependent diabetes mellitus Surgical History Surgical History History of hammertoe correction History of laparoscopic cholecystectomy History of tubal ligation Family History Family History Mother Diabetes mellitus Acute myocardial infarction Hypertension Heart disease Cholecystolithiasis Sibling Heart disease Alzheimer's dementia Sibling Alzheimer's dementia Father Heart disease Daughter No problems noted. Son Diabetes mellitus Morbid obesity Social History Social History Social History: The patient lives in her own home in [place]. She has a small dog at home with her. 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 She is a lifelong nonsmoker and denies alcohol and illicit substance abuse. She designates her daughter Hien Aldana as her surrogate decision maker and she wishes to be a full code. 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 Gender identity (if verbalized by the patient): Female Sexual Orientation (if Verbalized by the Patient): Straight or Heterosexual Spiritual care concerns: No Meds Home Medications and Allergies Home Medications Medication Instructions Recorded Confirmed Type aspirin 81 mg tablet 81 mg PO DAILY 09/06/20 11/09/21 History insulin glargine 100 unit/mL (3 10 unit SUBCUT DAILY #15 ml 04/04/21 11/09/21 Rx mL) subcutaneous pen blood sugar diagnostic #100 ea 04/10/21 11/09/21 Rx pen needle, diabetic 33 gauge x #100 ea 04/10/21 11/09/21 Rx 5/16 indapamide 2.5 mg tablet 5 mg PO DAILY #180 tablet 05/24/21 11/09/21 Rx albuterol sulfate 90 mcg/actuation 90 mcg INHALATION
--- NOTE | 2021-11-09 14:11 | PC.NURSE ---
This patient, Lorraine Davis, was admitted to IMU Room 210-01. Patient/family oriented to hospital policies and general routines including ID bracelet, bed and alarms, visiting hours, pain management, procedures, bathroom and other care routines, personal items, smoking policy, room service/diet, and visiting hours. Information on how to activate the Rapid Response Team has been discussed. Patient/Family are encouraged to report perceived risks to care and to ask questions if they do not understand what they are told or what they should do. [id number]
[2021-11-09] MEDS: ENOXAPARIN 100 MG/ML SYRINGE 90 MG SUB-Q (16:45)
[2021-11-09] MEDS: amLODIPine BESYLATE 5 MG TABLET PO (16:46)
[2021-11-09] MEDS: allopurinoL 100 MG TABLET PO (16:46)
[2021-11-09] MEDS: VALSARTAN 160 MG TABLET 320 MG PO (16:47)
[2021-11-09] MEDS: INDAPAMIDE 2.5 MG TABLET 5 MG PO (16:47)
[2021-11-09] MEDS: ASPIRIN 81 MG ENTERIC TABLET PO (16:47)
[2021-11-09] MEDS: FERROUS SULFATE 324 MG TABLET PO (16:47)
[2021-11-09 16:51] LABS: Anion Gap 7 mmol/L (8-16); Blood Urea Nitrogen 25 mg/dL (7-17); Calcium 8.6 mg/dL (8.4-10.2); Carbon Dioxide 27 mmol/L (22-30); Chloride 94 mmol/L (98-107); Estimated CRCL calculation 35 ml/min; Estimated Glomerular Filt Rate 43; Glucose 153 mg/dL (65-110); Magnesium 1.7 mg/dL (1.6-2.3); Potassium 3.2 mmol/L (3.4-5.0); Sodium 128 mmol/L (137-145)
--- NOTE | 2021-11-09 17:07 | PCRCNOTE ---
Pt declines use of hospital CPap. She states she cannot tolerated the mask at home either.
[2021-11-09 17:14] LABS: Glucose Point of Care 165 mg/dl (65-105)
[2021-11-09 17:54] LABS: Thyroid Stimulating Hormone Reflex 0.422 uIU/mL (0.465-4.68)
[2021-11-09 18:39] LABS: Free T4 Free Thyroxine Reflex 1.85 ng/dL (0.78-2.19)
[2021-11-09 19:23] LABS: Total Triiodothyronine (T3) 0.92 NG/ML (0.97-1.69)
[2021-11-09 20:36] LABS: Glucose Point of Care 144 mg/dl (65-105)
[2021-11-09] MEDS: METOPROLOL TARTRATE 50 MG TAB PO (21:28)
[2021-11-09] MEDS: MAGNESIUM SULF 2 GM/WATER 50ML 2 GM/50 ML BAG IVPB (23:37)
[2021-11-09] MEDS: POTASSIUM CHLORIDE 20 MEQ TABLET 40 MEQ PO (23:37)
[2021-11-10] VITALS (16 sets, daily range): BP systolic 111–150; BP diastolic 56–102; PULSE 64–110; RESP 18–26; TEMP 36.6–37.6; O2SAT 93–98
[2021-11-10 04:57] LABS: Basophils Percent Auto 0.2 % (0.2-1.2); Eosinophils Percent Auto 0.1 % (0-4.4); Hematocrit 39.2 % (37.0-47.0); Hemoglobin 13.5 g/dL (12.0-15.0); Immature Granulocyte Absolute 0.07 K/mm3 (0.00-0.031); Immature Granulocyte Percent A 0.8 % (0-0.5); Lymphocytes Absolute Auto 0.74 K/mm3 (0.9-3.2); Lymphocytes Percent Auto 8.7 % (18.3-44.2); Mean Corpuscular HGB Conc 34.4 g/dl (32-36); Mean Corpuscular Hemoglobin 30.1 pg (26-34); Mean Corpuscular Volume 87.3 fl (80-100); Mean Platelet Volume 10.5 fl (7.4-10.4); Monocytes Absolute Auto 0.8 K/mm3 (0.1-0.6); Monocytes Percent Auto 9.1 % (2.6-8.5); Neutrophils Absolute Auto 6.9 K/mm3 (1.3-6.7); Neutrophils Percent Auto 81.1 % (45.5-73.1); Platelet Count Result 162 k/mm3 (150-375); Red Blood Count 4.49 M/mm3 (4.2-5.4); Red Cell Distribution Width 13.4 % (11.5-14.5); White Blood Count 8.5 K/mm3 (4.5-10.0)
[2021-11-10] MEDS: ENOXAPARIN 100 MG/ML SYRINGE 90 MG SUB-Q ×2 (06:04→17:37)
[2021-11-10 07:28] LABS: Alanine Aminotransferase 20 U/L (4-35); Albumin Level 3.6 g/dL (3.5-5.1); Alkaline Phosphatase 73 U/L (38-126); Anion Gap 6 mmol/L (8-16); Aspartate Amino Transferase 41 U/L (14-36); Blood Urea Nitrogen 21 mg/dL (7-17); Calcium 8.4 mg/dL (8.4-10.2); Carbon Dioxide 30 mmol/L (22-30); Chloride 94 mmol/L (98-107); Estimated CRCL calculation 35 ml/min; Estimated Glomerular Filt Rate 43; Glucose 110 mg/dL (65-110); Magnesium 2.3 mg/dL (1.6-2.3); Sodium 130 mmol/L (137-145)
[2021-11-10] MEDS: FERROUS SULFATE 324 MG TABLET PO (08:57)
[2021-11-10] MEDS: INDAPAMIDE 2.5 MG TABLET 5 MG PO (08:58)
[2021-11-10] MEDS: POTASSIUM CHLORIDE 20 MEQ PACKET (FOR LIQUID) 40 MEQ PO (08:58)
[2021-11-10] MEDS: ASPIRIN 81 MG ENTERIC TABLET PO (08:59)
[2021-11-10] MEDS: amLODIPine BESYLATE 5 MG TABLET PO (08:59)
[2021-11-10] MEDS: allopurinoL 100 MG TABLET PO (08:59)
[2021-11-10] MEDS: METOPROLOL TARTRATE 50 MG TAB PO ×2 (09:00→21:03)
[2021-11-10] MEDS: VALSARTAN 160 MG TABLET 320 MG PO (09:00)
[2021-11-10] MEDS: INSULIN GLARGINE (*BKC) 100 UNITS/ML 10 UNITS SUB-Q (09:03)
--- NOTE | 2021-11-10 10:35 | PM.IMPN ---
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 insulin use: without longterm use Diabetes mellitus complication status: with hyperglycemia Qualified Code(s): E11.65 - Type 2 diabetes mellitus with hyperglycemia Code(s): E11.9 - Type 2 diabetes mellitus without complications Status: Acute (6) Mixed sleep apnea: Onset Date: ~03/2021 Code(s): G47.39 - Other sleep apnea Status: Acute (7) Hx of gout: Code(s): Z87.39 - Personal history of other diseases of the musculoskeletal system and connective tissue Status: Acute (8) Chronic kidney disease, stage III (moderate): Qualifiers: Chronic kidney disease stage 3 subtype: stage 3b (GFR 30-44) Qualified Code(s): N18.32 - Chronic kidney disease, stage 3b Code(s): N18.30 - Chronic kidney disease, stage 3 unspecified Status: Acute (9) Mixed hyperlipidemia: Code(s): E78.2 - Mixed hyperlipidemia Status: Acute (10) Gastro-esophageal reflux disease without esophagitis: Code(s): K21.9 - Gastro-esophageal reflux disease without esophagitis Status: Acute (11) Hypertension: Qualifiers: Hypertension type: unspecified Qualified Code(s): I10 - Essential (primary) hypertension Code(s): I10 - Essential (primary) hypertension Status: Acute (12) Insulin dependent diabetes mellitus: Status: Acute (13) Diastolic congestive heart failure: Code(s): I50.30 - Unspecified diastolic (congestive) heart failure Status: Acute (14) Acute UTI: Code(s): N39.0 - Urinary tract infection, site not specified Status: Acute Additional Plan # Fatigue poor p.o. intake likely related to COVID # Acute COVID pneumonia bilateral patchy ground-glass opacities on CTA which is also negative for PE not hypoxic does not qualify for her Decadron or remdesivir continue to monitor. Recheck chest x-ray today # Hyponatremia 125 baseline 130s gentle hydration and continue to monitor likely due to active infection and P poor p.o. intake she received some IV fluid in the ER. Will recheck her BMP. Looks euvolemic currently will avoid any further IV fluid as she has history of congestive heart failure. Sodium level continues to improve # hypokalemia 2.5 on admission magnesium was low which was replaced. Will replace potassium again today magnesium level has normalized today # UTI Rocephin follow urine culture # Atrial fibrillation with rapid ventricular rate no prior diagnosis on Cardizem drip resume metoprolol that she takes at home. TSH level last year was normal. Recheck TSH slightly low however do not thing related to hyperthyroidism she just recently got IV contrast as well. She needs to be evaluated as an outpatient basis. Will switch Cardizem drip to p.o. Cardizem today Lovenox full dose plan to switch to Eliquis as her chads Vasc score is high Monitor H&H or any bleeding Reviewed cardiology notes in the past and has no history of atrial fibrillation in the past. Atrial fibrillation likely due to underlying COVID hypokalemia hypomagnesemia and hyponatremia # Chronic kidney disease stage 3 stable creatinine continue to monitor # Insulin-dependent diabetes mellitus sliding scale insulin # Hyperlipidemia resume home medication # Hypertension resume home medication # Diastolic congestive heart failure well compensated. Continue home medication # DVT prophylaxis Lovenox full dose due to atrial fibrillation will plan to change to NOAC as his chads Vasc s
[2021-11-10 10:40] LABS: Glucose Point of Care 112 mg/dl (65-105)
[2021-11-10 12:59] LABS: INR 1.2; Prothrombin Time 14.7 Seconds (11.1-14.7)
[2021-11-10 13:00] LABS: Alanine Aminotransferase 20 U/L (4-35); Estimated CRCL calculation 38 ml/min; Estimated Glomerular Filt Rate 48
[2021-11-10] MEDS: dilTIAZem HCL 30 MG TABLET PO ×2 (13:02→17:36)
[2021-11-10 13:05] LABS: Glucose Point of Care 115 mg/dl (65-105)
[2021-11-10] MEDS: REMDESIVIR 200 MG/NS 250 ML 200 MG/250 ML BAG 250 MG IVPB (14:30)
[2021-11-10 17:38] LABS: Glucose Point of Care 115 mg/dl (65-105)
[2021-11-10 20:22] LABS: Glucose Point of Care 143 mg/dl (65-105)
[2021-11-11] VITALS (12 sets, daily range): BP systolic 116–125; BP diastolic 71; PULSE 64–98; RESP 22; TEMP 36.9–37.1; O2SAT 85–97
[2021-11-11 05:16] LABS: Basophils Percent Auto 0.1 % (0.2-1.2); Eosinophils Percent Auto 0.1 % (0-4.4); Hematocrit 35.9 % (37.0-47.0); Hemoglobin 12.1 g/dL (12.0-15.0); Immature Granulocyte Absolute 0.09 K/mm3 (0.00-0.031); Immature Granulocyte Percent A 1.2 % (0-0.5); Lymphocytes Absolute Auto 0.66 K/mm3 (0.9-3.2); Lymphocytes Percent Auto 8.8 % (18.3-44.2); Mean Corpuscular HGB Conc 33.7 g/dl (32-36); Mean Corpuscular Hemoglobin 30.2 pg (26-34); Mean Corpuscular Volume 89.5 fl (80-100); Mean Platelet Volume 10.7 fl (7.4-10.4); Monocytes Absolute Auto 0.6 K/mm3 (0.1-0.6); Monocytes Percent Auto 8.1 % (2.6-8.5); Neutrophils Absolute Auto 6.1 K/mm3 (1.3-6.7); Neutrophils Percent Auto 81.7 % (45.5-73.1); Platelet Count Result 162 k/mm3 (150-375); Red Blood Count 4.01 M/mm3 (4.2-5.4); Red Cell Distribution Width 13.5 % (11.5-14.5); White Blood Count 7.5 K/mm3 (4.5-10.0)
[2021-11-11 05:28] LABS: INR 1.2; Prothrombin Time 14.9 Seconds (11.1-14.7)
[2021-11-11 05:33] LABS: Alanine Aminotransferase 19 U/L (4-35); Albumin Level 3.2 g/dL (3.5-5.1); Alkaline Phosphatase 58 U/L (38-126); Anion Gap 6 mmol/L (8-16); Aspartate Amino Transferase 41 U/L (14-36); Bilirubin,Total 0.9 mg/dL (0.2-1.3); Blood Urea Nitrogen 27 mg/dL (7-17); CRP 6.5 mg/dL (<1.0); Calcium 8.1 mg/dL (8.4-10.2); Carbon Dioxide 28 mmol/L (22-30); Chloride 92 mmol/L (98-107); Estimated CRCL calculation 35 ml/min; Estimated Glomerular Filt Rate 43; Glucose 105 mg/dL (65-110); Lactate Dehydrogenase 625 U/L (313-618); Magnesium 2.1 mg/dL (1.6-2.3); Potassium 2.9 mmol/L (3.4-5.0); Sodium 126 mmol/L (137-145)
[2021-11-11] MEDS: ENOXAPARIN 100 MG/ML SYRINGE 90 MG SUB-Q ×2 (06:10→17:31)
[2021-11-11] MEDS: dilTIAZem HCL 30 MG TABLET PO ×4 (06:11→17:31)
[2021-11-11 08:26] LABS: Glucose Point of Care 141 mg/dl (65-105)
[2021-11-11] MEDS: amLODIPine BESYLATE 5 MG TABLET PO (09:14)
[2021-11-11] MEDS: VALSARTAN 160 MG TABLET 320 MG PO (09:14)
[2021-11-11] MEDS: FERROUS SULFATE 324 MG TABLET PO (09:14)
[2021-11-11] MEDS: METOPROLOL TARTRATE 50 MG TAB PO ×2 (09:14→20:50)
[2021-11-11] MEDS: INDAPAMIDE 2.5 MG TABLET 5 MG PO (09:14)
[2021-11-11] MEDS: allopurinoL 100 MG TABLET PO (09:15)
[2021-11-11] MEDS: ASPIRIN 81 MG ENTERIC TABLET PO (09:15)
[2021-11-11] MEDS: INSULIN GLARGINE (*BKC) 100 UNITS/ML 10 UNITS SUB-Q (09:15)
--- NOTE | 2021-11-11 10:11 | PCSTNOTE ---
Please refer to the Bedside Swallow Evaluation in the EMR. Please note, silent aspiration cannot be ruled out at bedside. Diet of Level 6, Level 0 recommended with swallow precautions in place.
[2021-11-11] MEDS: REMDESIVIR 100 MG/NS 250 ML 100 MG/250 ML BAG 250 MG IVPB (10:33)
[2021-11-11] MEDS: POTASSIUM CHLORIDE 20 MEQ TABLET 40 MEQ PO (10:34)
--- NOTE | 2021-11-11 10:35 | PM.IMPN ---
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 insulin use: without detention use Diabetes mellitus complication status: with hyperglycemia Qualified Code(s): E11.65 - Type 2 diabetes mellitus with hyperglycemia Code(s): E11.9 - Type 2 diabetes mellitus without complications Status: Acute (6) Mixed sleep apnea: Onset Date: ~03/2021 Code(s): G47.39 - Other sleep apnea Status: Acute (7) Hx of gout: Code(s): Z87.39 - Personal history of other diseases of the musculoskeletal system and connective tissue Status: Acute (8) Chronic kidney disease, stage III (moderate): Qualifiers: Chronic kidney disease stage 3 subtype: stage 3b (GFR 30-44) Qualified Code(s): N18.32 - Chronic kidney disease, stage 3b Code(s): N18.30 - Chronic kidney disease, stage 3 unspecified Status: Acute (9) Mixed hyperlipidemia: Code(s): E78.2 - Mixed hyperlipidemia Status: Acute (10) Gastro-esophageal reflux disease without esophagitis: Code(s): K21.9 - Gastro-esophageal reflux disease without esophagitis Status: Acute (11) Hypertension: Qualifiers: Hypertension type: unspecified Qualified Code(s): I10 - Essential (primary) hypertension Code(s): I10 - Essential (primary) hypertension Status: Acute (12) Insulin dependent diabetes mellitus: Status: Acute (13) Diastolic congestive heart failure: Code(s): I50.30 - Unspecified diastolic (congestive) heart failure Status: Acute (14) Acute UTI: Code(s): N39.0 - Urinary tract infection, site not specified Status: Acute Additional Plan # Fatigue poor p.o. intake likely related to COVID # Acute COVID pneumonia bilateral patchy ground-glass opacities on CTA which is also negative for PE not hypoxic does not qualify for her Decadron or remdesivir continue to monitor. Recheck chest x-ray 11/2021 with worsening opacities in right lung base. Now requiring oxygen. Will initiate Decadron and remdesivir for her COVID pneumonia and progression of the disease # Hyponatremia 125 baseline 130s gentle hydration and continue to monitor likely due to active infection and P poor p.o. intake she received some IV fluid in the ER. Will recheck her BMP. Looks euvolemic currently will avoid any further IV fluid as she has history of congestive heart failure. Sodium level continues to improve # hypokalemia 2.5 on admission magnesium was low which was replaced. Replace potassium magnesium is normal # UTI Rocephin follow urine culture # Atrial fibrillation with rapid ventricular rate no prior diagnosis on Cardizem drip resume metoprolol that she takes at home. TSH level last year was normal. Recheck TSH slightly low however do not thing related to hyperthyroidism she just recently got IV contrast as well. She needs to be evaluated as an outpatient basis. Cardizem drip stopped and switched to Cardizem p.o. remains in atrial fibrillation on telemetry with rate controlled Lovenox full dose plan to switch to Eliquis as her chads Vasc score is high Monitor H&H or any bleeding Reviewed cardiology notes in the past and has no history of atrial fibrillation in the past. Atrial fibrillation likely due to underlying COVID hypokalemia hypomagnesemia and hyponatremia # Chronic kidney disease stage 3 stable creatinine continue to monitor # Insulin-dependent diabetes mellitus sliding scale insulin # Hyperlipidemia resume home medication # Hypertension resume home medi
[2021-11-11 12:12] LABS: Glucose Point of Care 182 mg/dl (65-105)
--- NOTE | 2021-11-11 15:16 | WPDCDIQUERY2 ---
CDI Query Clarification Request -UTI has been documented -Urine culture from 11/09 RESULT: Mixed genital mounika isolated. These superficial bacteria are not indicative of a urinary tract infection. No further organism identification is warranted on this specimen. Please clarify if UTI has been ruled in, ruled out, or unable to determine. <Anupama Silverio - Last Filed: 11/11/21 15:20> Provider Comments unable to determine; likely contaminated sample <Kar Frausto MD - Last Filed: 11/11/21 19:03>
[2021-11-11 16:37] LABS: Glucose Point of Care 195 mg/dl (65-105)
--- NOTE | 2021-11-11 17:10 | PC.NURSE ---
This patient, Lorraine Davis, was transferred to [ [id number]] on 11/11/21 at 1710. Personal belongings sent with patient. Report given to [CRISTY Porter @ [phone] ]. Appropriate documentation sent with patient.
--- NOTE | 2021-11-11 17:30 | PC.NURSE ---
patient transferred to room 327 from IMU. call system explained to patient and patient verbalizes understanding. patient on 2 L oxygen at this time, tele, and continuous pulse ox.
[2021-11-11 21:35] LABS: Glucose Point of Care 284 mg/dl (65-105)
--- NOTE | 2021-11-11 23:12 | PC.NURSE ---
Patient had been brought down from Medical floor as a post arrest. Patient intubated. Family at hospital, wishes patient to be comfort measures at this time. Family at bedside, including daughter (next of kin). Patient passed at 2303. Confirmed by Myself and Elle Ascencio RN.
--- NOTE | 2021-11-11 23:41 | PC.NURSE ---
Patients bed alarm activated. Water Quality Specialist went into the room to find pt in bed and not responding to verbal commands. A rapid response was called. Water Quality Specialist found pulse to be weak. Respirations became agonal and pulse was lost. A code blue was called.
--- NOTE | 2021-11-12 04:16 | PDCODEBLUE ---
Code Blue Note Code Blue Note Time Arrived at Code Blue: 10:05 Initial Rhythm on Arrival: Asystole Airway Management: Pt being bagged on arrival Chest Compressions: In process on arrival to bedside Result of Code Blue: Pt transferred to ICU Cardiac Rhythm Post Code: Complete heart block Code Blue Summary: Upon arrival to patient's room was noted that resuscitation was ongoing with chest compressions, patient was being Ambu bagged. Dr. Adkins arrived to the code and intubated the patient airway patent and patient being bagged, ongoing chest compressions. Patient had 3 rounds of epi 2 amps of bicarb subsequent rhythm check showed ventricular fibrillation patient was chopped and a rhythm was present as well as pulse. Patient transferred to intensive care unit where in intensive care unit he was noted that had her blood pressure became very low at that time daughter who heart reach the hospital and have seen the patient already while in the medical floor mckeon indicated that add she did not want any further resuscitation efforts and patient was made comfort care at the point passing shortly after.
--- NOTE | 2021-11-12 16:45 | PM.DDS ---
Discharge Summary Date and Time Date of : 11/11/21 Time of : 23:03 Provider Pronounced By: Elle Ascencio RN; Cayden Tate RN Probable Cause of Probable Cause of : cardiac arrest, COVID [place] Summary Hospital Course: 80-year-old female with history of congestive heart failure and chronic kidney disease stage III presents to the emergency department with 1 week history of fatigue and decreased p.o. intake. She was also having some cough and hence went and did a home COVID test which came back positive on . She reports some associated shortness of breath. She denies any palpitations. Due to ongoing fatigue and tiredness she came to the ED for evaluation. She was noted to be in atrial fibrillation with rapid ventricular rate. She denies any prior history of atrial fibrillation. She denies any diarrhea or nausea vomiting or abdominal pain. She was given her metoprolol however the rate was not controlled and hence she was started on Cardizem drip in the ER. see was admitted for further management. Her AFib was controlled with Cardizem drip and was switched to oral Cardizem. She was also started on anticoagulation for her atrial fibrillation which is newly diagnosed. She was initially on room air did not require oxygen on admission for her COVID infection however during her hospital stay she continued to worsen with increased oxygen demand. CTA showed bilateral patchy ground-glass opacities however was negative for PE. Repeat chest x-ray showed worsening pneumonia with progression of the disease in right lung base and hence empiric antibiotics along with Decadron and remdesivir was started. Patient however continued to worsen and had cardiac arrest on 11/11/21 which is successfully revived after resuscitative measures. She was intubated during that course and was transferred to the ICU. She also had ventricular fibrillation for which she was shocked with successful reversal. Once in the ICU her daughter has mention she wanted no resuscitative measures. she subsequently on that night. 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
== END 2021-11-11 23:03 | disposition expired | DRG 177 ==
LOC: ANHED 11-09 01:12 → ANH3MEDSUR 11-12 14:54 → ANHICU 11-12 14:54 → ANHIMU 11-12 14:54
PROVIDERS: Internal Medicine; Admitting Provider Internal Medicine; Emergency Provider Emergency Medicine; PCP Family Medicine; Visit Provider Internal Medicine
DX: U07.1 COVID-19 (principal); J12.82 Pneumonia due to coronavirus disease 2019; E87.1 Hypo-osmolality and hyponatremia; I13.0 Hypertensive heart and chronic kidney disease with heart failure and stage 1 through stage 4 chronic kidney disease, or unspecified chronic kidney disease; I50.32 Chronic diastolic (congestive) heart failure; I44.2 Atrioventricular block, complete; I46.9 Cardiac arrest, cause unspecified; I49.01 Ventricular fibrillation; E87.6 Hypokalemia; I48.91 Unspecified atrial fibrillation; E11.22 Type 2 diabetes mellitus with diabetic chronic kidney disease; N18.32 Chronic kidney disease, stage 3b; E11.65 Type 2 diabetes mellitus with hyperglycemia; G47.39 Other sleep apnea; E78.2 Mixed hyperlipidemia; K21.9 Gastro-esophageal reflux disease without esophagitis; M10.9 Gout, unspecified; R53.83 Other fatigue; Z79.4 Long term (current) use of insulin; Z79.82 Long term (current) use of aspirin; Z79.899 Other long term (current) drug therapy
CPT/HCPCS: 36415; 71045; 71275; 80048; 80053; 81001; 82565; 82728; 82948; 83605; 83615; 83735; 84439; 84443; 84460; 84480; 85025; 85380; 85610; 86140; 87086; 87088; 92610; 93005; 94002; 96365; 96366; 96367; 96372; 97110; 97161; 97165; 99285; A9270; G0378; J0171; J0282; J0696; J1100; J1610; J1650; J1815; J2543; J3475; J3480; J7030; J7040; Q9967